=== PATIENT | female | born 1995 | race Caucasian/White ===

== ENCOUNTER 2024-03-10 17:17 | Emergency (ER) | payer OTHER ==
[~2024-03-10] VITALS: Ht 157.5 cm; Wt 61.7 kg
[2024-03-10 17:39] VITALS: BP 136/71; PULSE 82; RESP 18; TEMP 98.2; O2SAT 99
[2024-03-10] MEDS ORDERED: ACET500T99 PO (18:31)
[2024-03-10] MEDS: ACETAMINOPHEN EXTRA STRENGTH 500 MG TAB PO ONE (18:43)
--- NOTE | 2024-03-10 19:18 | NUR ---
Patient discharged with v/s stable. Written and verbal after care instructions given FOR ANKLE PAIN Patient alert, oriented and verbalized understanding of instructions. Ambulatory with steady gait. All questions addressed prior to discharge. ID band removed. Patient advised to follow up with PMD. Rx of TYLENOL given. Opportunity to ask questions provided and answered. WORK NOTE PROVIDED
== END 2024-03-10 19:18 | disposition home or self-care (01) ==
LOC: MED 17:17
DX: G89.29 Other chronic pain (principal); M25.571 Pain in right ankle and joints of right foot; R03.0 Elevated blood-pressure reading, without diagnosis of hypertension; Z79.899 Other long term (current) drug therapy
CPT/HCPCS: 99282